=== PATIENT | female | born 1940 | race Caucasian/White ===

== ENCOUNTER 2024-11-05 17:54 | Inpatient (IN) | payer MEDICARE, OTHER ==
[~2024-11-05] VITALS: Ht 154.9 cm; Wt 56.2 kg
[2024-11-05] MEDS ORDERED: ONDANSETRON HCL/PF 4 MG/2 ML VIAL ONE (19:05)
[2024-11-05] MEDS: ONDANSETRON HCL/PF 4 MG/2 ML VIAL IVP ONE (19:12)
[2024-11-05 19:21] LABS: BASOPHILS # (AUTO) 0.1 K/uL (0.0-0.2); BASOPHILS % (AUTO) 0.5 % (0.0-2.0); EOSINOPHILS # (AUTO) 0.2 K/uL (0.0-0.7); EOSINOPHILS % (AUTO) 1.8 % (0.0-6.0); HEMATOCRIT 42 % (33-45); HEMOGLOBIN 13.9 g/dL (11.5-14.8); LYMPHOCYTES # (AUTO) 1.5 K/uL (0.8-4.8); MEAN CORPUSCULAR HEMOGLOBIN 30 PG (26.0-33.0); MEAN CORPUSCULAR HGB CONC 33 g/dl (31.0-36.0); MEAN CORPUSCULAR VOLUME 89 fL (82-100); MONOCYTES # (AUTO) 0.7 K/uL (0.1-1.30); MONOCYTES % (AUTO) 5.9 % (2.0-12.0); NEUTROPHILS # (AUTO) 10.2 K/uL (1.8-8.9); NEUTROPHILS % (AUTO) 79.8 % (43.0-81.0); PLATELET COUNT (AUTO) 267 K/uL (150-450); RED BLOOD CELL COUNT(AUTO) 4.68 MIL/uL (4.0-5.2); RED CELL DISTRIBUTION WIDTH 15.1 % (11.5-15.0); WHITE BLOOD COUNT (AUTO) 12.7 K/uL (4.3-11.0)
[2024-11-05 19:30] LABS: CARBON DIOXIDE 25 mmol/L (21-32); CHLORIDE 104 mmol/L (98-107); CREATININE 0.9 mg/dL (0.6-1.3); GLUCOSE 100 mg/dL (74-106); SODIUM SERUM 138 mmol/L (136-145); UREA NITROGEN, BLOOD 19 mg/dL (7-18)
[2024-11-05 19:33] LABS: INR 0.96 (0.91-1.10); PARTIAL THROMBOPLASTIN TIME 23.2 SEC (24.3-34.3); PROTHROMBIN TIME 9.9 SECS (9.2-11.1)
[2024-11-05 21:00] LABS: CALCIUM, SERUM 10.1 mg/dL (8.5-10.1)
[2024-11-05] MEDS ORDERED: MAGNESIUM HYDROXIDE 30 ML UDC PO PRN (22:00)
[2024-11-05] MEDS: ENOXAPARIN SODIUM 30 MG/0.3 ML DISP.SYRIN SQ SCH (22:00)
[2024-11-05] MEDS ORDERED: ONDANSETRON HCL/PF 4 MG/2 ML VIAL IVP PRN (22:00)
[2024-11-05] MEDS ORDERED: Z GUARD REMEDY 4 OZ OINT TP PRN (22:00)
[2024-11-05] MEDS ORDERED: MAG HYDROX/AL HYDROX/SIMETH 30 ML UDC PO PRN (22:00)
[2024-11-05] MEDS ORDERED: HYDROCODONE/APAP 10/325MG TABLET PO PRN (22:00)
[2024-11-05] MEDS ORDERED: ACETAMINOPHEN 325 MG TABLET PO PRN (22:00)
[2024-11-05] MEDS ORDERED: ENOXAPARIN SODIUM 30 MG/0.3 ML DISP.SYRIN ONE (22:24)
[2024-11-06] MEDS: TRAMADOL HCL 50 MG TABLET PO PRN (00:51)
[2024-11-06 01:00] VITALS: BP 151/80; TEMP 98.1; O2SAT 99
[2024-11-06 06:37] LABS: BASOPHILS % (AUTO) 0.3 % (0.0-2.0); EOSINOPHILS # (AUTO) 0.1 K/uL (0.0-0.7); EOSINOPHILS % (AUTO) 0.9 % (0.0-6.0); HEMATOCRIT 37 % (33-45); HEMOGLOBIN 12.9 g/dL (11.5-14.8); LYMPHOCYTES # (AUTO) 1.9 K/uL (0.8-4.8); LYMPHOCYTES % (AUTO) 15.3 % (20.0-44.0); MEAN CORPUSCULAR HEMOGLOBIN 31 PG (26.0-33.0); MEAN CORPUSCULAR HGB CONC 35 g/dl (31.0-36.0); MEAN CORPUSCULAR VOLUME 89 fL (82-100); MONOCYTES # (AUTO) 0.9 K/uL (0.1-1.30); MONOCYTES % (AUTO) 7.5 % (2.0-12.0); NEUTROPHILS # (AUTO) 9.3 K/uL (1.8-8.9); PLATELET COUNT (AUTO) 223 K/uL (150-450); RED BLOOD CELL COUNT(AUTO) 4.17 MIL/uL (4.0-5.2); RED CELL DISTRIBUTION WIDTH 14.5 % (11.5-15.0); WHITE BLOOD COUNT (AUTO) 12.3 K/uL (4.3-11.0)
[2024-11-06 06:43] LABS: CALCIUM, SERUM 9.9 mg/dL (8.5-10.1); CREATININE 0.8 mg/dL (0.6-1.3); MAGNESIUM 2.3 mg/dL (1.8-2.4); PHOSPHORUS 3.8 mg/dL (2.5-4.9); POTASSIUM 3.8 mmol/L (3.5-5.1)
[2024-11-06 08:00] VITALS: BP 141/80; TEMP 97.5; O2SAT 98
[2024-11-06] MEDS: IV NS 0.9% 1,000 ML IV PRN (08:36)
[2024-11-06] MEDS ORDERED: VITAMIN D3 PO (15:18)
[2024-11-06] MEDS ORDERED: MAGNESIUM GLYCINATE PO (15:18)
[2024-11-06] MEDS ORDERED: CYAN-51 PO (15:18)
[2024-11-06] MEDS ORDERED: ATOR10TA PO (15:18)
[2024-11-06] MEDS ORDERED: AMLO-212 PO (15:18)
[2024-11-06] MEDS ORDERED: LOSA25TA27 PO (15:18)
[2024-11-06 16:00] VITALS: BP 154/74; TEMP 98.3; O2SAT 98
[2024-11-06 20:00] VITALS: BP 150/71; TEMP 98.2; O2SAT 97
[2024-11-07 07:19] LABS: BASOPHILS # (AUTO) 0.1 K/uL (0.0-0.2); BASOPHILS % (AUTO) 0.8 % (0.0-2.0); EOSINOPHILS # (AUTO) 0.3 K/uL (0.0-0.7); EOSINOPHILS % (AUTO) 3.3 % (0.0-6.0); HEMATOCRIT 38 % (33-45); HEMOGLOBIN 12.8 g/dL (11.5-14.8); LYMPHOCYTES # (AUTO) 1.9 K/uL (0.8-4.8); LYMPHOCYTES % (AUTO) 20.5 % (20.0-44.0); MEAN CORPUSCULAR HEMOGLOBIN 30 PG (26.0-33.0); MEAN CORPUSCULAR HGB CONC 34 g/dl (31.0-36.0); MEAN CORPUSCULAR VOLUME 89 fL (82-100); MONOCYTES # (AUTO) 0.8 K/uL (0.1-1.30); MONOCYTES % (AUTO) 8.6 % (2.0-12.0); NEUTROPHILS # (AUTO) 6.2 K/uL (1.8-8.9); NEUTROPHILS % (AUTO) 66.8 % (43.0-81.0); PLATELET COUNT (AUTO) 217 K/uL (150-450); RED BLOOD CELL COUNT(AUTO) 4.22 MIL/uL (4.0-5.2); RED CELL DISTRIBUTION WIDTH 14.8 % (11.5-15.0); WHITE BLOOD COUNT (AUTO) 9.3 K/uL (4.3-11.0)
[2024-11-07 07:40] LABS: CALCIUM, SERUM 9.1 mg/dL (8.5-10.1); CREATININE 0.7 mg/dL (0.6-1.3); POTASSIUM 4.1 mmol/L (3.5-5.1)
[2024-11-07 16:00] VITALS: BP 164/91; TEMP 98.8
[2024-11-07 20:24] VITALS: BP 147/88; TEMP 99; O2SAT 97
[2024-11-08 08:00] VITALS: BP 164/81; TEMP 98.4; O2SAT 98
[2024-11-08 09:00] VITALS: BP 138/79
[2024-11-08 16:00] VITALS: BP 143/76; TEMP 99.3; O2SAT 99
[2024-11-08 16:30] VITALS: TEMP 98.1
[2024-11-08 20:00] VITALS: BP 146/73; TEMP 99.9; O2SAT 98
[2024-11-09 04:03] VITALS: BP 146/73; TEMP 97.7
[2024-11-09 08:00] VITALS: BP 140/77; TEMP 98.6; O2SAT 99
[2024-11-09 16:00] VITALS: BP 158/79; TEMP 99; O2SAT 96
[2024-11-10 08:00] VITALS: BP_SYST 136; BP_SYST 150; BP_DIAS 71; BP_DIAS 85; TEMP 98.1; TEMP 98.2; O2SAT 96; O2SAT 99
[2024-11-10 16:00] VITALS: BP 145/62; TEMP 98.1; O2SAT 98
== END 2024-11-10 21:00 | DRG 536 ==
LOC: ER 17:56 → MED 11-06 00:25
PROVIDERS: ADMIT Nurse Practitioner Acute Care; ATTEND Internal Medicine
DX: S32.591A Other specified fracture of right pubis, initial encounter for closed fracture (principal); S32.592A Other specified fracture of left pubis, initial encounter for closed fracture; D72.829 Elevated white blood cell count, unspecified; I10 Essential (primary) hypertension; Z96.643 Presence of artificial hip joint, bilateral; Z90.13 Acquired absence of bilateral breasts and nipples; Z88.0 Allergy status to penicillin; W19.XXXA Unspecified fall, initial encounter; Y93.9 Activity, unspecified; W54.1XXA Struck by dog, initial encounter; Y92.009 Unspecified place in unspecified non-institutional (private) residence as the place of occurrence of the external cause
CPT/HCPCS: 36415; 71045-TC; 72190-TC; 72192-TC; 80048-TC; 83735-TC; 84100-TC; 85025-TC; 85730-TC; 97110-TC; 97116-TC; 97530-TC; A4223; G0378; J1650; J2405; J7030